=== PATIENT | male | born 1955 | race Caucasian/White ===

== ENCOUNTER 2024-11-22 14:53 | Emergency (ER) | payer MEDICARE, BC ==
[~2024-11-22] VITALS: Ht 180.3 cm; Wt 137.9 kg
[2024-11-22 14:55] VITALS: TEMP 98.6
[2024-11-22 15:23] VITALS: BP 168/104; PULSE 85; RESP 18; O2SAT 94
== END 2024-11-22 16:23 | disposition home or self-care (01) ==
LOC: ER 14:54
DX: R20.2 Paresthesia of skin (principal)
CPT/HCPCS: 70450; 82948; 99284